=== PATIENT | female | born 1960 | race Caucasian/White ===

== ENCOUNTER → 2017-03-10 | Outpatient (CLI) | payer OTHER | END | disposition home or self-care (01) | LOC: C.LABMFLN 07:28 | PROVIDERS: ATTEND Physician Assistant | DX: R35.0 Frequency of micturition (principal) ==

== ENCOUNTER → 2018-01-22 | Outpatient (CLI) | payer OTHER ==
[2018-01-22 17:40] LABS: BASO % 0.9 %; BASO ABS # 0.06 K/uL (0-0.2); EOS % 2.7 %; EOS ABS # 0.18 K/uL (0-0.5); HEMATOCRIT 45.8 % (37-47); HEMOGLOBIN 16.1 g/dL (12.0-16.0); IG# 0.01 K/uL (0.00-0.02); LYMPH ABS # 1.72 K/uL (1.2-3.4); MEAN CELL VOLUME 88.6 fL (80-100); MEAN CORPUSCULAR HEMOGLOBIN 31.1 pg (25-34); MEAN CORPUSCULAR HGB CONC 35.2 g/dl (32-36); MEAN PLATELET VOLUME 10.3 fL (7.4-10.4); MONO % 9.8 %; MONO ABS # 0.65 K/uL (0.11-0.59); NEUT % 60.4 %; NEUT ABS # 3.99 K/uL (1.4-6.5); PLATELET COUNT 238 K/uL (130-400); RED CELL DISTRIBUTION WIDTH CV 13.5 % (11.5-14.5); RED CELL DISTRIBUTION WIDTH SD 43.6 fL (36.4-46.3); WHITE BLOOD COUNT 6.61 K/uL (4.8-10.8)
[2018-01-22 19:26] LABS: ALBUMIN 3.9 gm/dl (3.4-5.0); BLOOD UREA NITROGEN 19 mg/dl (7-18); CALCIUM 9.3 mg/dl (8.5-10.1); CARBON DIOXIDE 28 mmol/L (21-32); CREATININE 0.85 mg/dl (0.60-1.20); GLUCOSE 133 mg/dl (70-99); POTASSIUM 3.6 mmol/L (3.5-5.1); SODIUM 140 mmol/L (136-145)
[2018-01-22 19:49] LABS: PHOSPHORUS 3.4 mg/dl (2.5-4.9)
== END | disposition home or self-care (01) ==
LOC: C.LABMFLN 16:34
PROVIDERS: ATTEND Family Medicine
DX: R00.2 Palpitations (principal)

== ENCOUNTER → 2018-07-17 | Outpatient (CLI) | payer OTHER ==
[~2018-07-17] MED LIST: ACET-1256 PO; AMLO5TAB3 PO; CHOL100027 PO; CLB/200 PO; CLR10 PO; METO25TA3 PO; MULT-513 PO; OPTIRAY 320 IV PRN
--- NOTE | 2018-07-17 15:58 | DIAGNOSTIC IMAGING REPORT ---
ABD/PELVIS COMBO CLINICAL HISTORY: 57 years-old Female presenting with R31.0 Gross hematuriaRUST#[id number]. TECHNIQUE: Multidetector CT of the abdomen and pelvis was performed before and after the administration of intravenous contrast. IV contrast: 93 mL of Optiray 320. A dose lowering technique was used consistent with the principles of ALARA (as low as reasonably achievable). COMPARISON: 05/18/2018 performed at an outside hospital. CT DOSE (mGy.cm): The estimated cumulative dose is 2087.34 mGy.cm. FINDINGS: Test Center Manager topogram: Unremarkable. Lung bases: Lungs and pleural spaces clear. Normal heart size. No pericardial or pleural effusion. Liver: Normal morphology. Density consistent with hepatic steatosis. No focal lesion. Patent hepatic vasculature. Biliary: No intrahepatic or extrahepatic biliary ductal dilatation. Gallbladder decompressed. Pancreas: Normal. Spleen: Normal. Adrenal glands: Normal. Kidneys and ureters: Well-defined hypodensity in the right kidney consistent with simple cyst. No solid renal or urothelial mass. No nephrolithiasis. No hydronephrosis. Parapelvic cysts noted at the lower pole the left kidney. Ureters not dilated. No urothelial thickening. The distal left ureter is incompletely opacified with contrast limiting evaluation of this region. Bladder: Allowing for incomplete distention, the bladder is grossly normal appearing. Pelvic organs: Uterus surgically absent. Normal ovaries. Bowel: Normal appendix. No bowel obstruction. Peritoneal cavity: No free fluid or intraperitoneal gas. Lymph nodes: No enlarged lymph nodes in the abdomen or pelvis. Vasculature: Aorta and IVC patent and normal in caliber. Abdominal wall: Normal. Musculoskeletal: Degenerative changes of the spine. IMPRESSION: 1. No solid renal or urothelial neoplasm. No hydronephrosis. No nephrolithiasis. 2. Grossly normal-appearing bladder. This may not exclude the necessity of cystoscopy. 3. Hepatic steatosis. Electronically signed by: Derek Son M.D. 07/17/2018 3:57 PM Dictated Date/Time: 07/17/2018 3:49 PM
== END | disposition home or self-care (01) ==
LOC: C.CTS 15:25
PROVIDERS: ATTEND Urology
DX: R31.0 Gross hematuria (principal); K76.0 Fatty (change of) liver, not elsewhere classified

== ENCOUNTER 2023-11-27 06:08 | Inpatient (IN) ==
--- NOTE | 2023-11-10 10:42 | PAT Medication Instructions ---
Medication Instructions Date of Service November 10, 2023 Home Medications celecoxib 200 mg capsule (Celebrex) 200 mg PO BID PRN acetaminophen 500 mg tablet 1,000 mg PO Q6H PRN amlodipine 2.5 mg tablet 2.5 mg PO QAM calcium carbonate 600 mg-vitamin D3 5 mcg (200 unit) tablet 1 tab PO QAM cholecalciferol (vitamin D3) 25 mcg (1,000 unit) capsule (Vitamin D3) 1,000 unit PO QAM ibuprofen 200 mg tablet 400 mg PO QAM PRN losartan 25 mg tablet 25 mg PO QAM metoprolol succinate 25 mg tablet,extended release 24 hr 25 mg PO HS multivitamin 1 tab PO QAM potassium gluconate 550 mg (90 mg) tablet 550 mg PO QAM ASK your surgeon for instructions celecoxib 200 mg capsule (Celebrex) 200 mg PO BID PRN ibuprofen 200 mg tablet 400 mg PO QAM PRN DO NOT take the morning of surgery calcium carbonate 600 mg-vitamin D3 5 mcg (200 unit) tablet 1 tab PO QAM cholecalciferol (vitamin D3) 25 mcg (1,000 unit) capsule (Vitamin D3) 1,000 unit PO QAM losartan 25 mg tablet 25 mg PO QAM multivitamin 1 tab PO QAM potassium gluconate 550 mg (90 mg) tablet 550 mg PO QAM Take morning of surgery With a small sip of water, OTHERWISE NOTHING TO EAT OR DRINK AFTER MIDNIGHT: acetaminophen 500 mg tablet 1,000 mg PO Q6H PRN(if needed) amlodipine 2.5 mg tablet 2.5 mg PO QAM Take evening before surgery acetaminophen 500 mg tablet 1,000 mg PO Q6H PRN(if needed) metoprolol succinate 25 mg tablet,extended release 24 hr 25 mg PO HS Other Notes If you have any questions please call us at [phone] or [phone] or [phone] or [phone]
--- NOTE | 2023-11-13 11:26 | Anesthesiology Consultation ---
Date of Service November 13, 2023 Assessment & Plan (1) Encounter for pre-operative examination: Chart Review Chart Review: Acceptable Risk for Surgery (pending PCP clearance ) and Patient seen in Pre Admission Testing - Awaiting PCP clearance 11/14/23 ([place]) - Check BSG AM DOS Per PAT appt on 11/13/23, no recent illness/disease exposures, illness related symptoms, or recent illness/disease positive tests. Will leave to surgeon's discretion if preop Covid testing needed Teaching & Discussion Pre-Anesthesia Teaching/Discussion Notes: Instructed NPO after midnight before surgery,except medications with 15 cc of water. Medication instructions provided according to the PAT guidelines. History Surgery Operation Date: 11/27/23 07:45 Proposed Procedures p L3-L5 Decompression and Fusion, Spinal Cord Monitoring - Jeremy Hansen DO Height/Weight Height: 5 ft 3 in Weight: 108.6 kg Allergies Allergy/AdvReac Type Severity Reaction Status Date / Time Penicillins Allergy Severe HIVES Verified 11/06/23 11:33 prednisone Allergy Severe HEART Verified 11/06/23 11:33 PALPITATES & RACES, WEAK nickel Allergy Unknown skin Verified 11/06/23 11:34 irritation MELVIN Inhibitors AdvReac Severe MUSCLE Verified 11/06/23 11:33 WEAKNESS hydrochlorothiazide AdvReac Severe MUSCLE Verified 11/06/23 11:33 CRAMPING adhesive tape AdvReac Unknown skin Verified 11/06/23 11:35 irritation NSAIDS (Non-Steroidal AdvReac Unknown increased Verified 11/06/23 12:49 Anti-Inflamma bleeding Medications Home Medications Medication Instructions Recorded Confirmed Last Taken celecoxib 200 mg capsule (Celebrex) 200 mg PO BID PRN Pain 09/11/22 11/06/23 Unknown acetaminophen 500 mg tablet 1,000 mg PO Q6H PRN Pain 11/06/23 11/06/23 Unknown amlodipine 2.5 mg tablet 2.5 mg PO QAM 11/06/23 11/06/23 Unknown calcium carbonate 600 mg-vitamin 1 tab PO QAM 11/06/23 11/06/23 Unknown D3 5 mcg (200 unit) tablet cholecalciferol (vitamin D3) 25 1,000 unit PO QAM 11/06/23 11/06/23 Unknown mcg (1,000 unit) capsule (Vitamin D3) ibuprofen 200 mg tablet 400 mg PO QAM PRN Pain 11/06/23 11/06/23 Unknown losartan 25 mg tablet 25 mg PO QAM 11/06/23 11/06/23 Unknown metoprolol succinate 25 mg 25 mg PO HS 11/06/23 11/06/23 Unknown tablet,extended release 24 hr multivitamin 1 tab PO QAM 11/06/23 11/06/23 Unknown potassium gluconate 550 mg (90 mg) 550 mg PO QAM 11/06/23 11/06/23 Unknown tablet Past Medical History Medical History Morbid obesity Obstructive sleep apnea mild per 2020 sleep study; no CPAP History of postoperative nausea and vomiting Vitamin B12 deficiency (dietary) anemia takes oral supplement on occasion Hypokalemia hx of; takes oral supplement on occasion Controlled type 2 diabetes mellitus without complication diet controlled glucose controlled per patient Cervicalgia Chronic low back pain Palpitations pt states rare since starting on BB Allergic rhinitis EKG, abnormal Chronic abnormal EKG (cannot rule out anterior infarct)- has had subsequent ECHO without issues- follows with PCP Hyperlipidemia no meds at present Migraine headache HTN (hypertension) Exercise / Class Metabolic Activity III < 4 Walking/Shop/Light housework (one flight of stairs - no chest pain, mild SOB) Past Family History Family History Mother Hypertension Uterine cancer Father Diabetes Hypertension Leukemia Non-Hodgkin lymphoma Peripheral neuropathy Brother Diabetes Sister Diabetes Hypertension Osteoporosis Past Surgical History Surgical History Status post hysteroscopic ablation of endometrium S/P carpal tunnel release b/l S/P tonsillectomy H/O arthroscopy of knee L meniscectomy S/P hysterectomy H/O colonoscopy 04/12/2022 H/O section x 2 Past Anesthesia History No Hx of Anesthesia Complications (with exception to PONV ) and No Family Hx of Anesthesia Complications (with exception to mother- PONV ) History of PONV History of PONV (improved with pre and domenica treatment with anti nausea medication ) and Hx of Motion Sickness Social History Smoking Status: Former smoker Smoking cigarettes per day: <5 cigs/day Do You Dip or Chew Tobacco: No Smoking End Date: Hx Alcohol Use: No Hx Substance Use: No Review of Systems Patient denies chest pain, shortness of breath at rest, reflux, cough, wheezing, palpitations. No hx of seizures, stroke. No hx of blood clots or blood transfusions Physical Exam Vital Signs VITALS BP 135/82 P 88 TEMP 97.9 SP02 98% RESP 16 Constitutional no acute distress ENMT Mouth: no TMJ clicking Thyromental Distance: > or= 3.5 Finger Breadths (3.5) Mallampati Class: III [place] T[place] to side tooth Neck neck extension not limited Respiratory normal respiratory effort; no respiratory distress Auscultation: lungs clear to auscultation bilaterally; no wheezes Cardiovascular Rate/Rhythm: regular rhythm; + abnormal rate Heart Sounds: no murmur Vessels: no carotid bruit Musculoskeletal Spine: no pain with cervical ROM Extremities: extremities normal to inspection Psychiatric Orientation: alert Lab Results Anesthesia Preop Results Results Anesthesia Widget: WBC 6.14 K/ul (4.8-10.8) 11/13/23 Hgb 14.0 g/dl (12.0-16.0) 11/13/23 Hct 40.0 % (37.0-47.0) 11/13/23 Plt 223 K/uL (130-400) 11/13/23 Na 138 mmol/L (136-145) 11/13/23 K 3.9 mmol/L (3.5-5.1) 11/13/23 Cl 106 mmol/L (98-107) 11/13/23 CO2 26 mmol/L (21-32) 11/13/23 BUN 20 mg/dl (6-23) 11/13/23 Creat 0.74 mg/dl (0.6-1.2) 11/13/23 Glucose Level 172 mg/dl (70-99(Fasting)) H 11/13/23 PT 10.7 Seconds (9.0-12.0) 11/13/23 PTT 27 Seconds (21-31) 11/13/23 INR 1.0 (0.9-1.1) 11/13/23 HA1c 6.4 % (4.5-5.6) H 11/13/23 Urine Color Yellow 11/13/23 Urine Appearance Clear (Clear) 11/13/23 Urine pH 5.5 (4.5-7.5) 11/13/23 Urine Specific [place] 1.020 (1.000-1.030) 11/13/23 Urine Protein Negative (Negative) 11/13/23 Urine Glucose (UA) 2+ (Negative) H 11/13/23 Urine Ketones Negative (Negative) 11/13/23 Urine Blood Negative (Negative) 11/13/23 Urine Nitrite Negative (Negative) 11/13/23 Urine Bilirubin Negative (Negative) 11/13/23 Urine Urobilinogen Negative (Negative) 11/13/23 Urine Leukocyte Esterase Negative (Negative) 11/13/23 Blood Type A Positive 11/13/23 Antibody Screen NEGATIVE 11/13/23 Testing Electrocardiogram Date: 11/13/23 Findings: + NSR @ Poor R wave progression, consider anterior DC versus lead placement versus LVH (Poor R wave progression present since at least 2018 (continues to be similar in appearance by personal visual inspection)did have subsequent echo showing no acute issues; patient seen PCP 11/14/23 for clearance) Chest X-Ray Date: 11/13/23 Findings: + NAD FINDINGS: PA and lateral chest radiographs are obtained. No prior studies are available for comparison at the time of dictation. The cardiomediastinal silhouette is top normal for projection noting atherosclerotic calcification of the thoracic aorta. The lungs and pleural spaces are clear. There is no pneum othorax. The bony thorax appears intact. Echocardiogram Date: 01/12/21 EF: 65-70% LV Function: normal RWMA: + none Other Findings: + LVH (mild/concentric ) and + diastolic dysfunction (Grade I ) Valvular Disease: + MR (mild) Mild left atrial dilation No significant change from prior study on 02/12/18
[~2023-11-27 06:08] MED LIST changes: -ACET-1256 PO; +ACETAMINOPHEN 500 MG TAB PO SCH; -AMLO5TAB3 PO; -CHOL100027 PO; -CLB/200 PO; -CLR10 PO; +GABAPENTIN 600 MG DOSE PO SCH; +LR 15ML/HR IV SCH; +LR 60ML/HR IV SCH; -METO25TA3 PO; -MULT-513 PO; -OPTIRAY 320 IV PRN; +ceFAZolin 2000MG 2,000 MG/15 ML SYR IV SCH
[2023-11-27] MEDS ORDERED: ROCURONIUM BROMIDE 10 MG/ML 5 ML VIAL IV ONE (06:56)
[2023-11-27] MEDS ORDERED: MIDAZOLAM HCL 1 MG/ML 2ML VIAL ONE (07:01)
[2023-11-27] MEDS ORDERED: SCOPOLAMINE 1 MG TDSY TD ONE ×2 (07:01→07:03)
[2023-11-27] MEDS ORDERED: DEXAMETHASONE SOD INJ 4 MG/ML VIAL ONE (07:01)
[2023-11-27] MEDS ORDERED: SUGAMMADEX SODIUM 200 MG/2 ML VIAL IV ONE (07:01)
[2023-11-27] MEDS ORDERED: ONDANSETRON INJ 2 MG/ML 2 ML VIAL ONE (07:01)
[2023-11-27] MEDS ORDERED: PROPOFOL IV EMULSION 10 MG/ML 20 ML VIAL IV ONE (07:01)
[2023-11-27] MEDS ORDERED: fentaNYL citrate PF 100 MCG/2 ML VIAL ONE ×2 (07:01→10:18)
[2023-11-27] MEDS ORDERED: PROMETHAZINE HCL 6.25 MG in SODIUM CHLORIDE 0.9% 50 ML IV PRN (07:02)
[2023-11-27] MEDS ORDERED: ePHEDrine sulfate 50 MG/ML AMP IV PRN (07:02)
[2023-11-27] MEDS ORDERED: HYDROmorphone INJ 2 MG/ML SYR/VIAL IV PRN (07:02)
[2023-11-27] MEDS ORDERED: ONDANSETRON INJ 2 MG/ML 2 ML VIAL IV PRN ×2 (07:02→12:34)
[2023-11-27] MEDS ORDERED: ATROPINE SULFATE 0.1 MG/ML 10ML SYR IV PRN (07:02)
--- NOTE | 2023-11-27 07:48 | History & Physical Bridge Note ---
Date of Service November 27, 2023 History & Physical Bridge Note I have examined the patient, reviewed the History & Physical and in the interval since the performance of the History & Physical I have noted the following changes of clinical significance: no changes noted
--- NOTE | 2023-11-27 07:49 | History & Physical Report ---
Date of Service November 27, 2023 Assessment & Plan (1) Neurogenic claudication due to lumbar spinal stenosis: Plan: L3-5 decompression and fusion History of Present Illness Chief Complaint: Back and leg pain Primary Care Provider: Christophe Cano MD This is a 63-year-old female presents with chronic persistent back and leg pain after failing course of nonoperative care she is here for surgical invention. Allergies Allergy/AdvReac Type Severity Reaction Status Date / Time Penicillins Allergy Severe HIVES Verified 11/27/23 06:33 prednisone Allergy Severe HEART Verified 11/27/23 06:33 PALPITATES & RACES, WEAK nickel Allergy Unknown skin Verified 11/27/23 06:33 irritation MELVIN Inhibitors AdvReac Severe MUSCLE Verified 11/27/23 06:33 WEAKNESS hydrochlorothiazide AdvReac Severe MUSCLE Verified 11/27/23 06:33 CRAMPING adhesive tape AdvReac Unknown skin Verified 11/27/23 06:33 irritation NSAIDS (Non-Steroidal AdvReac Unknown increased Verified 11/27/23 06:33 Anti-Inflamma bleeding Home Medications Medication Instructions Recorded Confirmed Type celecoxib 200 mg capsule (Celebrex) 200 mg PO BID PRN Pain 09/11/22 11/27/23 History acetaminophen 500 mg tablet 1,000 mg PO Q6H PRN Pain 11/06/23 11/27/23 History amlodipine 2.5 mg tablet 2.5 mg PO QAM 11/06/23 11/27/23 History calcium carbonate 600 mg-vitamin 1 tab PO QAM 11/06/23 11/27/23 History D3 5 mcg (200 unit) tablet cholecalciferol (vitamin D3) 25 1,000 unit PO QAM 11/06/23 11/27/23 History mcg (1,000 unit) capsule (Vitamin D3) ibuprofen 200 mg tablet 400 mg PO QAM PRN Pain 11/06/23 11/27/23 History losartan 25 mg tablet 25 mg PO QAM 11/06/23 11/27/23 History metoprolol succinate 25 mg 25 mg PO HS 11/06/23 11/27/23 History tablet,extended release 24 hr multivitamin 1 tab PO QAM 11/06/23 11/27/23 History potassium gluconate 550 mg (90 mg) 550 mg PO QAM 11/06/23 11/27/23 History tablet Past Med/Surg History Medical History Morbid obesity Obstructive sleep apnea mild per 2020 sleep study; no CPAP History of postoperative nausea and vomiting Vitamin B12 deficiency (dietary) anemia takes oral supplement on occasion Hypokalemia hx of; takes oral supplement on occasion Controlled type 2 diabetes mellitus without complication diet controlled glucose controlled per patient Cervicalgia Chronic low back pain Palpitations pt states rare since starting on BB Allergic rhinitis EKG, abnormal Chronic abnormal EKG (cannot rule out anterior infarct)- has had subsequent ECHO without issues- follows with PCP Hyperlipidemia no meds at present Migraine headache HTN (hypertension) Surgical History Status post hysteroscopic ablation of endometrium S/P carpal tunnel release b/l S/P tonsillectomy H/O arthroscopy of knee L meniscectomy S/P hysterectomy H/O colonoscopy 04/12/2022 H/O section x 2 Family History Mother Hypertension Uterine cancer Father Diabetes Hypertension Leukemia Non-Hodgkin lymphoma Peripheral neuropathy Brother Diabetes Sister Diabetes Hypertension Osteoporosis Social History Smoking Status: Former smoker Tobacco Type: Cigarettes Cigarettes Per Day: <5 cigs/day; Smoking End Date: ; Second Hand Exposure: No; Do You Dip or Chew Tobacco: No; Tobacco Cessation Education Requested by Patient: No Hx Alcohol Use: No Hx Substance Use: No Preferred Language: Finnish Communication Ability: Effective Visual Impairment: No Limitations Hearing Ability: Normal Crown 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 Required: No Beliefs That Will Affect Care: None marital status: Current Living Situation: Spouse current occupational status: employed Other Information That Helps Us Care for You: No Feels Safe at Home: Yes Safety Concerns: Feels Safe At This Time Childhood Exposure to Second-Hand Smoke: Yes Diet: regular caffeine: No Dental Care, Regularly: Yes Seatbelt Use: always Sunscreen Use: Yes Assistive Devices: Glasses Physical Exam Physical Exam: Patient is alert and oriented Heart regular rate and rhythm Lungs clear Results & Data Results & Data Vital Signs (Past 12 Hours) Vital Signs Temp Pulse Resp BP Pulse Ox O2 Del Method 11/27/23 06:28 36.7 C 96 H 18 140/95 95 Room Air
[2023-11-27] MEDS ORDERED: BUPIVACAINE/EPINEPHRINE 0.25% 1:200,000 30 ML VIAL ONE (07:52)
[2023-11-27] MEDS ORDERED: ceFAZolin 330 MG/ML 1 GM VIAL ONE (07:52)
[2023-11-27] MEDS ORDERED: GLYCOPYRROLATE 0.2 MG/ML VIAL ONE ×2 (08:30→08:36)
[2023-11-27] MEDS ORDERED: PHENYLEPHRINE 100MCG/ML 10ML SYR IV ONE (08:30)
[2023-11-27] MEDS ORDERED: ePHEDrine sulfate 50 MG/5 ML SYR ONE (08:36)
[2023-11-27] MEDS ORDERED: FLOSEAL HEMOSTATIC MATRIX 10ML TOP ONE (10:25)
--- NOTE | 2023-11-27 10:36 | Operative Report ---
Post Operative Report Pre & Post Diagnosis Operation Date: 11/27/23 07:45 Pre-Op Diagnosis: Neurogenic claudication due to lumbar spinal stenosis Spondylolisthesis L3-L4 Morbid obesity Post-Op Diagnosis: Same I identified the patient and participated in the time-out.: Yes Procedure Operation Date: 11/27/23 07:45 Actual Procedures #1 lumbar decompression bilaterally facetectomies and foraminotomies L2-3, L3-L4 and L4-5. #2 posterior spinal fusion L3-L4 L4-5. #3 placement posterior instrumentation L3-L5. #4 interbody fusion L3-L4 L4-L5. #5 position of Spira limb by 26 mm at L3-L4 and 13 x 26 mm at L4-L5. #6 placement locally harvested morselized autograft in the posterior gutters. #7 placement of Morpheus bone graft in the interbody space and infuse collagen sponge placed combined with bone graft in the posterior lateral gutters. Surgeon Jeremy Hansen, DO Acid Splicer Mykel Cisneros Estimated Blood Loss 700 Findings See Below The patient is 5 foot 3 weighing over 107 kg with BMI in excess of 41. Patient's body habitus did contribute to significant technical difficulty requiring her deepest retractors and longer instruments in order from perform her procedure. This at least 50% increased operative time. Specimens 20 minutes Indications This is a 63-year-old female presents above-mentioned diagnosis after failing course of nonoperative care is here for surgical invention Description of Procedure Patient was met with identified informed consent obtained. Patient was then taken to the operative suite underwent patient placed in a prone position on the Rah table on top of the Aleks frame. All bony prominences well-padded eyes inspected to ensure no external pressure placed upon them. This point the lumbar spine was prepped and draped in normal sterile fashion. Sharp dissection with the assistance of Bovie cautery performed down to and exposing the lamina transverse processes of L3 L4-5 bilaterally. From a caudal cephalad fashion complete laminectomy of L4 L3 and partial laminectomy of L2 was performed including bilateral medial facetectomies and foraminotomies addressing severe spinal stenosis. Pedicle screws were then placed at L3 L4-5 bilaterally with assistance of fluoroscopy and appropriately sized michael placed. By way of a transforaminal approach on the right complete discectomy of L4-5 was performed endplates guided to subcortically bone and a 13 x 26 mm Spira cage with Morpheus tapped in position. Then proceeded to L4-L5 on the right and by way of a transforaminal portion right a complete discectomy of L4-5 was performed endplates guided to subcortically bone and a 11 x 26 mm Spira cage with I factor tapped in position. The rods were then compressed locked in final position bilaterally. The transverse processes of L3 L4-5 burred to subcortical bleeding bone infuse collagen sponge combined with Koros bone graft placed in posterior gutters. 15 round MICHAEL drain inserted. The incision was then closed with 1 Vicryl the fascia 2-0 Vicryl subcutaneously and 4 Monocryl for final closure. Steri-Strip sterile dressings placed. Patient awakened taken to PACU stable condition. Please note spinal cord monitoring visualized at the procedure no changes noted. Lastly Mykel Cisneros was present at the entire surgery involved in patient positioning complex portions of the surgery and final skin closure. I attest to the content of the Intraoperative Record and any orders documented therein. Any exceptions are noted below.
--- NOTE | 2023-11-27 10:46 | Fluoroscopy Report ---
INTRAOPERATIVE RADIOGRAPHS CLINICAL HISTORY: Lumbar spinal fusion. Fluoro time: 25 seconds Ka,r: 24.58 mGy FINDINGS: 2 spot fluoroscopic views of the lumbar spine are presented. The levels noted takes into ac count transitional anatomy. There has been discectomy at L4-L5 and L5-S1 with laminectomy and posteri or fusion at L4-S1. Interpedicular screws are in place. The orthopedic hardware appears intact. IMPRESSION: Intraoperative images from lumbar spinal fusion surgery as above. Electronically signed by: Christophe Purcell M.D. 11/27/2023 10:45 AM
[2023-11-27] MEDS: fentaNYL citrate PF 100 MCG/2 ML VIAL IV PRN ×2 (11:15→11:24)
[2023-11-27] MEDS ORDERED: PROMETHAZINE HCL INJ 25 MG/ML 1 ML VIAL ONE (11:25)
[2023-11-27] MEDS ORDERED: SODIUM CHLORIDE 0.9% 50 ML BAG ONE (11:25)
[2023-11-27] MEDS ORDERED: LORazepam 0.5 MG in SYRINGE 0.25 ML IV PRN (12:34)
[2023-11-27] MEDS ORDERED: ALUMINUM/MAGNESIUM SUSP 30 ML UDC PO PRN (12:34)
[2023-11-27] MEDS ORDERED: DO NOT ADMINISTER FLU VACCINE PRN (12:34)
[2023-11-27] MEDS ORDERED: MAGNESIUM HYDROXIDE SUSP 30 ML UDC PO PRN (12:34)
[2023-11-27] MEDS ORDERED: HYDROmorphone INJ 0.5 MG/0.5 ML SYR IV PRN (12:34)
[2023-11-27] MEDS ORDERED: ACETAMINOPHEN 500 MG TAB PO PRN (12:34)
[2023-11-27] MEDS ORDERED: traMADol HCL 50 MG TABLET PO PRN (12:34)
[2023-11-27] MEDS ORDERED: LORazepam 0.5 MG TAB PO PRN (12:34)
[2023-11-27] MEDS ORDERED: DO NOT ADMINISTER PNEUMOCOCCAL VACCINE PRN (12:34)
[2023-11-27] MEDS ORDERED: METOCLOPRAMIDE HCL INJ 5 MG/ML 2 ML VIAL IV PRN (12:34)
[2023-11-27] MEDS ORDERED: ONDANSETRON 4 MG OD TAB PO PRN (12:34)
[2023-11-27] MEDS ORDERED: FAMOTIDINE 20 MG TAB PO PRN (12:34)
[2023-11-27] MEDS ORDERED: hydrOXYzine HCl 25 MG TAB PO PRN (12:34)
[2023-11-27] MEDS ORDERED: diphenhydrAMINE Capsule 25 MG CAP PO PRN (12:34)
[2023-11-27] MEDS ORDERED: SOD PHOSPHATE/SOD BIPHOSPHATE ENEMA 132 ML BTL PR PRN (12:34)
[2023-11-27] MEDS ORDERED: PROMETHAZINE HCL 12.5 MG in SODIUM CHLORIDE 0.9% 50 ML IV PRN (12:34)
[2023-11-27] MEDS ORDERED: NALOXONE HCL 0.4 MG/1 ML VIAL/CARP IV PRN (12:34)
[2023-11-27] MEDS ORDERED: bisacodyL 10 MG SUPP PR PRN (12:34)
[2023-11-27] MEDS ORDERED: ACETAMINOPHEN 1,000 MG/100 ML VIAL IV PRN (12:34)
[2023-11-27] MEDS: LACTATED RINGER'S 1,000 ML IV SCH ×2 (12:47→17:26)
--- NOTE | 2023-11-27 12:49 | Anesthesiology Progress Note ---
Date of Service November 27, 2023 Anesthesia Post Procedure Vital Signs Vital Signs: Temp Pulse Pulse Pulse Resp BP BP 11/27/23 12:34 36.7 C 96 H 18 112/72 11/27/23 12:10 88 20 149/75 H 11/27/23 12:00 97 H 20 141/80 H 11/27/23 11:50 94 H 16 147/83 H 11/27/23 11:40 95 H 12 149/86 H 11/27/23 11:30 99 H 20 164/94 H 11/27/23 11:20 91 H 18 159/84 H 11/27/23 11:10 118 H 20 190/109 H 11/27/23 11:00 93 H 16 146/80 H 11/27/23 10:58 36.0 C L 111 H 14 166/88 H 11/27/23 06:28 36.7 C 96 H 18 140/95 Pulse Ox O2 Del Method O2 Flow Rate 11/27/23 12:34 95 Room Air 11/27/23 12:10 95 Nasal Cannula 2 11/27/23 12:00 95 Nasal Cannula 2 11/27/23 11:50 96 Nasal Cannula 2 11/27/23 11:40 94 Nasal Cannula 2 11/27/23 11:30 94 Nasal Cannula 2 11/27/23 11:20 97 Nasal Cannula 4 11/27/23 11:10 94 Nasal Cannula 4 11/27/23 11:00 94 Oxymask 6 11/27/23 10:58 94 Oxymask 6 11/27/23 06:28 95 Room Air Pain Intensity Back: Pain Intensity: 3 Transfer of Care Handoff Completed per policy Notes Mental Status: alert / awake / arousable Patient Amnestic to Procedure: Yes Nausea / Vomiting: adequately controlled Pain: adequately controlled Airway Patency, RR, SpO2: stable & adequate BP & HR: stable & adequate Hydration State: stable & adequate Anesthetic Complications: no major complications apparent
[2023-11-27] MEDS: ceFAZolin 2000MG 2,000 MG/15 ML SYR IV SCH (16:45)
[2023-11-27] MEDS: CHECK SCOPOLAMINE PATCH PLACEMENT SCH (16:46)
[2023-11-27] MEDS: HYDROmorphone INJ 1 MG/ML SYRINGE IV PRN ×2 (17:21→22:03)
[2023-11-27] MEDS: DOCUSATE SODIUM/SENNA 50/8.6MG TAB PO SCH (19:42)
[2023-11-27] MEDS: METOPROLOL SUCC 25MG EXT REL TAB PO SCH (19:43)
[2023-11-28] MEDS: ceFAZolin 2000MG 2,000 MG/15 ML SYR IV SCH (00:20)
[2023-11-28] MEDS: CHECK SCOPOLAMINE PATCH PLACEMENT SCH ×4 (00:20→23:30)
[2023-11-28] MEDS: LACTATED RINGER'S 1,000 ML IV SCH ×2 (00:21→05:21)
[2023-11-28] MEDS: oxyCODONE HCL IR 5 MG TAB (IMMEDIATE RELEASE) PO PRN ×4 (02:16→23:53)
[2023-11-28] MEDS: POLYETHYLENE (MIRALAX) 17 GM PACK PO SCH ×4 (05:21→23:30)
[2023-11-28] MEDS: CHOLECALCIFEROL 1,000 UNITS 25 MCG TAB PO SCH (08:02)
[2023-11-28] MEDS: amLODIPine BESYLATE 5 MG TAB PO SCH (08:02)
[2023-11-28] MEDS: MULTIVITAMIN TAB PO SCH (08:02)
[2023-11-28] MEDS: dexAMETHasone 6 MG in SYRINGE 0 ML IV SCH (08:02)
[2023-11-28] MEDS: CALCIUM 600MG + VIT D 400 IU TAB PO SCH (08:02)
--- NOTE | 2023-11-28 08:05 | Hospitalist Consultation ---
Date of Consultation November 28, 2023 Assessment & Plan (1) Neurogenic claudication due to lumbar spinal stenosis: s/p #1 lumbar decompression bilaterally facetectomies and foraminotomies L2-3, L3-L4 and L4-5. #2 posterior spinal fusion L3-L4 L4-5. #3 placement posterior instrumentation L3-L5. #4 interbody fusion L3-L4 L4-L5. #5 position of Spira limb by 26 mm at L3-L4 and 13 x 26 mm at L4-L5. #6 placement locally harvested morselized autograft in the posterior gutters. #7 placement of Morpheus bone graft in the interbody space and infuse collagen sponge placed combined with bone graft in the posterior lateral gutters. EBL 700cc Pain control, bowel regimen, PT/OT per primary service DVT Proph: SCDs, aquiles hose WBC elevation suspected from steroids/surgery Hgb 14 --> 10.1, acute blood loss anemia from surgery/some dilutional from IVF --Checking orthostatics for lightheadedness, suspect acute blood loss anemia from surgery --EBL 700cc, MICHAEL output reported 355cc thus far -- Hold further losartan as below, metoprolol w/ hold parameters Discussed to alert of any worsened lightheaded/dizziness. Does have + murmur on exam (prior echo 2020 w/ mild MR noted, no change from 2018) (2) HTN (hypertension): home meds w/ amlodipine 2.5mg, metoprolol 25mg HS, losartan 25mg daily -Did have some lightheadedness reported, BP 121/70 but did have lows last evening -was already given AM losartan (noting did have some low BPs last evening) -- placing further on hold for now. She didn't get PM metoprolol due to low BPs of note RN to check orthostatics, IVF bolus if needed. HOLDING further losartan for now, metoprolol w/ hold parameters Monitor BP (3) Hyperlipidemia: not on statin, f/u PCP (4) Controlled type 2 diabetes mellitus without complication: a1c 6.4 -- f/u PCP recommended Not on any medications at baseline Added BSG AC/HS, sliding scale insulin while inpatient Monitor BSGs on steroids (5) Obstructive sleep apnea: not tolerant to CPAP, does have diastolic dysfunction on 2019 echo. f/u PCP for further discussions recommended Also w/ seasonal allergies -> flonase added as takes at home (6) Vitamin B12 deficiency (dietary) anemia: 311 this summer, continue OTC supplementations at [place] Plan Thank you for allowing hospitalist service participate in the care of Ms Epperson. Hospitalist service will follow along. Please call with any questions/concerns. Supervising Physician Co-Signing Physician Notes The patient was not seen by me. The chart was reviewed. Case discussed with ADAM Lagos. Agree with assessment and plan History of Present Illness Reason for Consultation: medical management Requesting Physician: Dr Hansen Attending Physician: Jeremy Hansen DO History of Present Illness 63yo female with PMHx significant for HTN, HLD, CAM (CPAP intolerant), DM II (not treated), B12 deficiency presented for lumbar decompression and fusion with Dr Hansen on 11/27. EBL 700. Eval this morning, feeling alright. Some hip/low back pain but legs controlled. Tejada still in place, clear yellow urine. To be removed after lunch but she wants to take a walk first. Notes some lightheadedness at times, discussed checking orthostatics/IVF bolus if needed but holding further losartan as was given early this morning. She notes her BP was low last evening and they held her metoprolol. No palpitations/CP reported. Discussed iron replacement/iron studies for AM but would want to ensure moving bowels. No gas but belly grumbling at present. Does have some sinus congestion, seasonal allergies/flonase at home. Will order while inpatient. Questions/concerns addressed at this time. Allergies Allergy/AdvReac Type Severity Reaction Status Date / Time Penicillins Allergy Severe HIVES Verified 11/27/23 06:33 prednisone Allergy Severe HEART Verified 11/27/23 06:33 PALPITATES & RACES, WEAK nickel Allergy Unknown skin Verified 11/27/23 06:33 irritation MELVIN Inhibitors AdvReac Severe MUSCLE Verified 11/27/23 06:33 WEAKNESS hydrochlorothiazide AdvReac Severe MUSCLE Verified 11/27/23 06:33 CRAMPING adhesive tape AdvReac Unknown skin Verified 11/27/23 06:33 irritation NSAIDS (Non-Steroidal AdvReac Unknown increased Verified 11/27/23 06:33 Anti-Inflamma bleeding Home Medications Medication Instructions Recorded Confirmed Type celecoxib 200 mg capsule (Celebrex) 200 mg PO BID PRN Pain 09/11/22 11/27/23 History acetaminophen 500 mg tablet 1,000 mg PO Q6H PRN Pain 11/06/23 11/27/23 History amlodipine 2.5 mg tablet 2.5 mg PO QAM 11/06/23 11/27/23 History calcium carbonate 600 mg-vitamin 1 tab PO QAM 11/06/23 11/27/23 History D3 5 mcg (200 unit) tablet cholecalciferol (vitamin D3) 25 1,000 unit PO QAM 11/06/23 11/27/23 History mcg (1,000 unit) capsule (Vitamin D3) ibuprofen 200 mg tablet 400 mg PO QAM PRN Pain 11/06/23 11/27/23 History losartan 25 mg tablet 25 mg PO QAM 11/06/23 11/27/23 History metoprolol succinate 25 mg 25 mg PO HS 11/06/23 11/27/23 History tablet,extended release 24 hr multivitamin 1 tab PO QAM 11/06/23 11/27/23 History potassium gluconate 550 mg (90 mg) 550 mg PO QAM 11/06/23 11/27/23 History tablet oxycodone 5 mg tablet 5 mg PO Q6H PRN pain #30 tabs 11/27/23 Rx tramadol 50 mg tablet 50 mg PO Q6H PRN pain, moderate 11/27/23 Rx #30 tabs Patient History Medical History Morbid obesity Obstructive sleep apnea mild per 2020 sleep study; no CPAP History of postoperative nausea and vomiting Vitamin B12 deficiency (dietary) anemia takes oral supplement on occasion Hypokalemia hx of; takes oral supplement on occasion Controlled type 2 diabetes mellitus without complication diet controlled glucose controlled per patient Cervicalgia Chronic low back pain Palpitations pt states rare since starting on BB Allergic rhinitis EKG, abnormal Chronic abnormal EKG (cannot rule out anterior infarct)- has had subsequent ECHO without issues- follows with PCP Hyperlipidemia no meds at present Migraine headache HTN (hypertension) Surgical History Status post hysteroscopic ablation of endometrium S/P carpal tunnel release b/l S/P tonsillectomy H/O arthroscopy of knee L meniscectomy S/P hysterectomy H/O colonoscopy 04/12/2022 H/O section x 2 Family History Mother Hypertension Uterine cancer Father Diabetes Hypertension Leukemia Non-Hodgkin lymphoma Peripheral neuropathy Brother Diabetes Sister Diabetes Hypertension Osteoporosis Social History Smoking Status: Former smoker Tobacco Type: Cigarettes Cigarettes Per Day: <5 cigs/day; Smoking End Date: ; Second Hand Exposure: No; Do You Dip or Chew Tobacco: No; Tobacco Cessation Education Requested by Patient: No Hx Alcohol Use: No Hx Substance Use: No Preferred Language: Hungarian Communication Ability: Effective Visual Impairment: No Limitations Hearing Ability: Normal Filler Operator Required: No Beliefs That Will Affect Care: None marital status: Current Living Situation: Spouse current occupational status: employed Other Information That Helps Us Care for You: No Feels Safe at Home: Yes Safety Concerns: Feels Safe At This Time Childhood Exposure to Second-Hand Smoke: Yes Diet: regular caffeine: No Dental Care, Regularly: Yes Seatbelt Use: always Sunscreen Use: Yes Assistive Devices: Glasses Physical Exam 2 Physical Exam: General: WD/WN obese female sitting up in bed, NAD, on computer HEENT: head atraumatic, normocephalic, thick neck, trachea midline Resp: even/unlabored,slightly diminished in the bases, no w/c/r, on room air CV: regular, slightly tachy to low 100s, +systolic murmur, no pitting edema/calf tenderness GI: +BS, soft/NT : tejada w/ clear yellow urine MSK/Neuro: dressing to lumbar spine c/d/i, MICHAEL w/ bloody drainage, NVI, pulses palpable, dorsiflexion/plantar flexion intact Psych: AOx3, cooperative with exam Results & Data Results & Data Vital Signs (Past 12 Hours) Vital Signs Temp Pulse Resp BP Pulse Ox O2 Del Method 11/28/23 07:26 36.9 C 105 H 16 121/70 95 Room Air 11/28/23 04:08 104/63 11/28/23 02:57 36.6 C 93 H 18 91/52 L 94 Room Air 11/28/23 00:02 36.6 C 93 H 18 92/50 L 93 Room Air Laboratory Results 11/28/23 07:33 11/28/23 07:33 PG Care Time/CCT Total # of Minutes Spent Total Time Spent with Patient: Total time spent is greater than 50% in coordination of care (as documented) at patient's floor/unit and/or counseling patient: Coding Level of Care Code 80471 IN/OBS CONSULT LVL 3,45M Diagnoses Neurogenic claudication due to lumbar spinal stenosis M48.062 HTN (hypertension) I10 Hyperlipidemia E78.5 Controlled type 2 diabetes mellitus without complication E11.9 Obstructive sleep apnea G47.33 Vitamin B12 deficiency (dietary) anemia D51.8
[2023-11-28 08:25] LABS: Basophils # (auto) 0.03 K/uL (0.00-0.20); Basophils % (auto) 0.2 %; Eosinophils # (auto) 0.01 K/uL (0.00-0.50); Eosinophils % (auto) 0.1 %; Hematocrit (blood only) 29.6 % (37.0-47.0); Hemoglobin 10.1 g/dl (12.0-16.0); Immature Granulocytes # (auto) 0.07 K/uL (0.01-0.20); Immature Granulocytes % (auto) 0.5 %; Lymphocytes # (auto) 1.06 K/uL (1.20-3.40); Lymphocytes % (auto) 7.9 %; Mean Corpuscular Hemoglobin 30.7 pg (25.0-34.0); Mean Corpuscular Hgb Conc 34.1 g/dL (32.0-36.0); Mean Platelet Volume 10.4 fL (9.4-12.4); Monocytes # (auto) 1.25 K/uL (0.11-0.59); Monocytes % (auto) 9.3 %; Platelet Count 180 K/uL (130-400); RDW Standard Deviation 42.8 fL (36.4-46.3); Red Blood Count 3.29 M/uL (4.20-5.40); White Blood Count 13.42 K/ul (4.8-10.8)
[2023-11-28 08:39] LABS: BUN Creatinine Ratio 24.7 (10-20); Calcium 8.8 mg/dl (8.6-10.3); Creatinine Clr Calc Pharmacy 78.7 ml/min; Est GFR (African American) 81.1 ml/min; Magnesium 1.9 mg/dl (1.7-2.4)
[2023-11-28] MEDS ORDERED: LOSARTAN POTASSIUM 25 MG TAB PO SCH (09:00)
[2023-11-28] MEDS ORDERED: GLUCOSE 10 TAB/TUBE PO PRN (09:12)
[2023-11-28] MEDS ORDERED: DEXTROSE 50% 50 ML SYRINGE IV PRN (09:12)
[2023-11-28] MEDS ORDERED: GLUCAGON FOR INJ 1 MG VIAL SQ PRN (09:12)
[2023-11-28] MEDS ORDERED: GLUCOSE 40% GEL 15 GM TUBE PO PRN (09:12)
[2023-11-28] MEDS ORDERED: CARBOHYDRATES FOR HYPOGLYCEMIA PO PRN (09:12)
[2023-11-28] MEDS: INSULIN ASPART PER UNIT CHARGE SC SCH ×3 (12:27→20:47)
[2023-11-28] MEDS: FLUTICASONE PROPIONATE NA SPR 16 GM BTL SCH (12:27)
--- NOTE | 2023-11-28 15:09 | Orthopedic Progress Note ---
Date of Service November 28, 2023 Assessment & Plan (1) Neurogenic claudication due to lumbar spinal stenosis: Plan: At this time we will continue physical therapy monitor MICHAEL operatively discharge home in next few days. Admission and Anticipated Discharge Date Admission Date: November 27, 2023 Subjective Back pain controlled leg pain markedly improved Physical Exam Physical Exam: Patient is good strength testing. Appears comfortable. Results & Data Vital Signs (Past 12 Hours) Vital Signs Temp Pulse Resp BP Pulse Ox O2 Del Method 11/28/23 14:39 36.9 C 104 H 16 132/67 96 Room Air 11/28/23 07:26 36.9 C 105 H 16 121/70 95 Room Air 11/28/23 04:08 104/63
[2023-11-28] MEDS: DOCUSATE SODIUM/SENNA 50/8.6MG TAB PO SCH (19:42)
[2023-11-28] MEDS: METOPROLOL SUCC 25MG EXT REL TAB PO SCH (19:43)
[2023-11-29] MEDS: oxyCODONE HCL IR 5 MG TAB (IMMEDIATE RELEASE) PO PRN ×2 (05:25→20:10)
[2023-11-29] MEDS: POLYETHYLENE (MIRALAX) 17 GM PACK PO SCH ×4 (05:26→23:02)
[2023-11-29 08:09] LABS: Hematocrit (blood only) 27.4 % (37.0-47.0); Hemoglobin 9.3 g/dl (12.0-16.0); Mean Corpuscular Hemoglobin 30.5 pg (25.0-34.0); Mean Corpuscular Hgb Conc 33.9 g/dL (32.0-36.0); Mean Corpuscular Volume 89.8 fL (80.0-100.0); Mean Platelet Volume 10.7 fL (9.4-12.4); Platelet Count 163 K/uL (130-400); RDW Coefficient of Variation 13.1 % (11.5-14.5); RDW Standard Deviation 42.8 fL (36.4-46.3); Red Blood Count 3.05 M/uL (4.20-5.40); White Blood Count 12.03 K/ul (4.8-10.8)
--- NOTE | 2023-11-29 08:15 | Orthopedic Progress Note ---
Date of Service November 29, 2023 Assessment & Plan (1) Neurogenic claudication due to lumbar spinal stenosis: Plan: Patient is doing well postop day #2. I encouraged her to continue taking laps around the nursing station. She is going to use her spirometer. She is going to avoid any full bending at the waist. Will continue with GI DVT prophylaxis as well as pain control measures. Would like to get her discharged home tomorrow if all goes well. Admission and Anticipated Discharge Date Admission Date: November 27, 2023 Subjective Patient was seen bedside in room 307. She is doing well this morning. Her pain is well-controlled. She is tolerating p.o. well. She has incisional pain but no pain going down her legs. She has been up and walking. She denies any other numbness, tingling, paresthesias Physical Exam Physical Exam: On exam she is alert and oriented. Her lower extremity motor exam reveals no focal atrophy her strength and sensation are both intact. Her abdomen soft nontender calves are supple nontender. Cardiovascular exam reveals no gross abnormalities. The dressing is clean dry and intact. Her MICHAEL drain is in place and is holding suction. She had 15 cc of drainage on the last shift Results & Data Vital Signs (Past 12 Hours) Vital Signs Temp Pulse Resp BP Pulse Ox O2 Del Method 11/29/23 07:28 36.6 C 95 H 16 122/77 95 Room Air
[2023-11-29 08:26] LABS: BUN Creatinine Ratio 31.6 (10-20); Calcium 8.6 mg/dl (8.6-10.3); Creatinine Clr Calc Pharmacy 92.2 ml/min; Est GFR (African American) 98.1 ml/min; Est GFR (Non-African American) 84.7 ml/min; Magnesium 2.2 mg/dl (1.7-2.4)
[2023-11-29] MEDS: MULTIVITAMIN TAB PO SCH (08:29)
[2023-11-29] MEDS: amLODIPine BESYLATE 5 MG TAB PO SCH (08:29)
[2023-11-29] MEDS: FLUTICASONE PROPIONATE NA SPR 16 GM BTL SCH (08:29)
[2023-11-29] MEDS: CALCIUM 600MG + VIT D 400 IU TAB PO SCH (08:30)
[2023-11-29] MEDS: CHOLECALCIFEROL 1,000 UNITS 25 MCG TAB PO SCH (08:30)
[2023-11-29] MEDS: CHECK SCOPOLAMINE PATCH PLACEMENT SCH ×3 (08:30→23:02)
[2023-11-29] MEDS: dexAMETHasone 6 MG in SYRINGE 0 ML IV SCH (08:31)
[2023-11-29] MEDS: INSULIN ASPART PER UNIT CHARGE SC SCH ×4 (08:38→20:12)
[2023-11-29 08:45] LABS: Ferritin 167.6 ng/ml (8-388)
[2023-11-29] MEDS: guaiFENesin 600 MG TABCR PO SCH ×2 (09:07→20:09)
--- NOTE | 2023-11-29 09:10 | Hospitalist Progress Note ---
Date of Service November 29, 2023 Assessment & Plan (1) Neurogenic claudication due to lumbar spinal stenosis: Plan: s/p #1 lumbar decompression bilaterally facetectomies and foraminotomies L2-3, L3-L4 and L4-5. #2 posterior spinal fusion L3-L4 L4-5. #3 placement posterior instrumentation L3-L5. #4 interbody fusion L3-L4 L4-L5. #5 position of Spira limb by 26 mm at L3-L4 and 13 x 26 mm at L4-L5. #6 placement locally harvested morselized autograft in the posterior gutters. #7 placement of Morpheus bone graft in the interbody space and infuse collagen sponge placed combined with bone graft in the posterior lateral gutters. with Dr Hansen on 11/27. EBL 700cc Pain control, bowel regimen, PT/OT per primary service DVT Proph: SCDs, aquiles hose WBC elevation suspected from steroids/surgery. Trending down on repeat. Remains afebrile. Hgb 14 --> 10.1 --> 9.3 acute blood loss anemia from surgery/some dilutional from IVF. EBL 700cc, MICHAEL output 355cc + 75cc overnight Iron studies acceptable. B12 borderline. Pepcid daily for GI proph added Did have some lightheadedness AM 11/28 and was given AM losartan, placed on hold following. Orthostatics ok, would continue to hold losartan for today w/ elevated BUN. Cr stable. Discussed to alert of any worsened lightheaded/dizziness for need for repeat orthostatics Does have + murmur on exam (prior echo 2020 w/ mild MR noted, no change from 2018) (2) HTN (hypertension): Plan: Home meds w/ amlodipine 2.5mg, metoprolol 25mg HS, losartan 25mg daily Did have some lightheadedness reported 11/28AM w/ BP 121/70 but did have lows post-operatively. Placed on hold but was already given. Orthostatics acceptable BP 122/77, losartan on hold but pending BPs/renal function in AM likely able to resume 11/30 Monitor BP (3) Hyperlipidemia: Plan: not on statin, f/u PCP (4) Controlled type 2 diabetes mellitus without complication: Plan: a1c 6.4 --Not on any medications at baseline Added BSG AC/HS, sliding scale insulin while inpatient on steroids 11/28, BSGs much improved and stable. Monitor Outpt f/u with PCP recommended at [place] (5) Obstructive sleep apnea: Plan: not tolerant to CPAP, does have diastolic dysfunction on 2018 echo. f/u PCP for further discussions recommended Also w/ seasonal allergies -> flonase added as takes at home, also added mucinex for congestion reported. 95% on RA - continue incentive spirometer (6) Vitamin B12 deficiency (dietary) anemia: Plan: 311 this summer. Level on repeat 354 and improved. Continue OTC supplementation at dc Plan Thank you for allowing hospitalist service participate in the care of Ms Epperson. Hospitalist service will follow along in AM, possible sign off tomorrow if BPs stable/resume losartan and blood counts stable. Please call with any questions/concerns. Admission and Anticipated Discharge Date Admission Date: November 27, 2023 Supervising Physician Co-Signing Physician Notes The patient was not seen by me. The chart was reviewed. Case discussed with ADAM Lagos. Agree with assessment and plan Subjective Eval this morning, doing well. Less lightheaded/dizziness. Losartan on hold. Pain improved but did have some increased discomfort last night. Eating/drinking without issue. Passing some gas. Requested some mucinex for some phlegm. Has used zyrtec in past for allergies but notes it makes her sleepy and wanting to avoid for now. No SOB/fevers. Questions/concerns addressed at this time. Physical Exam Physical Exam: General: WD/WN obese female sitting up in bed, NAD, on computer HEENT: head atraumatic, normocephalic, thick neck, trachea midline Resp: even/unlabored,slightly diminished in the bases, no w/c/r, on room air 95% CV: regular, rates in 90s, faint +systolic murmur, no pitting edema/calf tenderness GI: +BS, soft/NT : NO FURTHER LOVE MSK/Neuro: dressing to lumbar spine slightly saturated, MICHAEL w/ bloody drainage, NVI, pulses palpable, dorsiflexion/plantar flexion intact Psych: AOx3, cooperative with exam Results & Data Results & Data Vital Signs (Past 12 Hours) Vital Signs Temp Pulse Resp BP Pulse Ox O2 Del Method 11/29/23 07:28 36.6 C 95 H 16 122/77 95 Room Air Laboratory Results 11/29/23 11/29/23 11/28/23 Range/Units 07:29 07:07 20:40 WBC 12.03 H (4.8-10.8) K/ul RBC 3.05 L (4.20-5.40) M/uL Hgb 9.3 L (12.0-16.0) g/dl Hct 27.4 L (37.0-47.0) % MCV 89.8 (80.0-100.0) fL MCH 30.5 (25.0-34.0) pg MCHC 33.9 (32.0-36.0) g/dL RDW Std Deviation 42.8 (36.4-46.3) fL RDW Coeff of [place] 13.1 (11.5-14.5) % Plt Count 163 (130-400) K/uL MPV 10.7 (9.4-12.4) fL Sodium 139 (136-145) mmol/L Potassium 4.0 (3.5-5.1) mmol/L Chloride 106 (98-107) mmol/L Carbon Dioxide 28 (21-32) mmol/L Anion Gap 5 (3-11) BUN 24 H (6-23) mg/dl Creatinine 0.76 (0.6-1.2) mg/dl Est Cr Clr Drug Dosing 92.2 ml/min Est GFR ( Amer) 98.1 ml/min Est GFR (Non-Af Amer) 84.7 ml/min BUN/Creatinine Ratio 31.6 H (10-20) Glucose 159 H (70-99(Fasting)) mg/dl POC Glucose 146 H 174 H (70-99) mg/dl Calcium 8.6 (8.6-10.3) mg/dl Magnesium 2.2 (1.7-2.4) mg/dl Iron 64 (35-150) mcg/dl TIBC 247 L (250-450) mcg/dl Unsaturated IBC 183 (155-355) mcg/dl Transferrin % Sat 26 (15-50) % Ferritin 167.6 (8-388) ng/ml Vitamin B12 354 (180-914) pg/ml 11/28/23 11/28/23 Range/Units 16:42 11:34 WBC (4.8-10.8) K/ul RBC (4.20-5.40) M/uL Hgb (12.0-16.0) g/dl Hct (37.0-47.0) % MCV (80.0-100.0) fL MCH (25.0-34.0) pg MCHC (32.0-36.0) g/dL RDW Std Deviation (36.4-46.3) fL RDW Coeff of [place] (11.5-14.5) % Plt Count (130-400) K/uL MPV (9.4-12.4) fL Sodium (136-145) mmol/L Potassium (3.5-5.1) mmol/L Chloride (98-107) mmol/L Carbon Dioxide (21-32) mmol/L Anion Gap (3-11) BUN (6-23) mg/dl Creatinine (0.6-1.2) mg/dl Est Cr Clr Drug Dosing ml/min Est GFR ( Amer) ml/min Est GFR (Non-Af Amer) ml/min BUN/Creatinine Ratio (10-20) Glucose (70-99(Fasting)) mg/dl POC Glucose 186 H 244 H (70-99) mg/dl Calcium (8.6-10.3) mg/dl Magnesium (1.7-2.4) mg/dl Iron (35-150) mcg/dl TIBC (250-450) mcg/dl Unsaturated IBC (155-355) mcg/dl Transferrin % Sat (15-50) % Ferritin (8-388) ng/ml Vitamin B12 (180-914) pg/ml PG Care Time/CCT Total # of Minutes Spent Total Time Spent with Patient: Total time spent is greater than 50% in coordination of care (as documented) at patient's floor/unit and/or counseling patient: Coding Level of Care Code 49575 SUB INP/OBS CARE 3/50MIN Diagnoses Neurogenic claudication due to lumbar spinal stenosis M48.062 HTN (hypertension) I10 Hyperlipidemia E78.5 Controlled type 2 diabetes mellitus without complication E11.9 Obstructive sleep apnea G47.33 Vitamin B12 deficiency (dietary) anemia D51.8
[2023-11-29] MEDS: FAMOTIDINE 20 MG in SYRINGE 3 ML IV SCH (11:08)
[2023-11-29] MEDS: DOCUSATE SODIUM/SENNA 50/8.6MG TAB PO SCH (20:09)
[2023-11-29] MEDS: METOPROLOL SUCC 25MG EXT REL TAB PO SCH (20:09)
[2023-11-30] MEDS: oxyCODONE HCL IR 5 MG TAB (IMMEDIATE RELEASE) PO PRN ×2 (02:06→06:11)
[2023-11-30] MEDS: POLYETHYLENE (MIRALAX) 17 GM PACK PO SCH ×2 (05:29→11:57)
--- NOTE | 2023-11-30 07:39 | Hospitalist Progress Note ---
Date of Service November 30, 2023 Assessment & Plan (1) Neurogenic claudication due to lumbar spinal stenosis: Plan: s/p #1 lumbar decompression bilaterally facetectomies and foraminotomies L2-3, L3-L4 and L4-5. #2 posterior spinal fusion L3-L4 L4-5. #3 placement posterior instrumentation L3-L5. #4 interbody fusion L3-L4 L4-L5. #5 position of Spira limb by 26 mm at L3-L4 and 13 x 26 mm at L4-L5. #6 placement locally harvested morselized autograft in the posterior gutters. #7 placement of Morpheus bone graft in the interbody space and infuse collagen sponge placed combined with bone graft in the posterior lateral gutters. with Dr Hansen on 11/27. EBL 700cc Pain control, bowel regimen, PT/OT per primary service DVT Proph: SCDs, aquiles hose WBC elevation suspected from steroids, no infectious symptoms and trending down.Afebrile Hgb 14 --> 10.1 --> 9.3 acute blood loss anemia from surgery/some dilutional from IVF. Improved to 9.9 on repeat. MICHAEL output slowed Iron studies acceptable. B12 borderline. Pepcid daily for GI proph added Patient planning for dc today if moving her bowels. No abdominal pain, passing lots of gas. Ambulation encouraged and has been frequenting the halls. (2) HTN (hypertension): Plan: Home meds w/ amlodipine 2.5mg, metoprolol 25mg HS, losartan 25mg daily Lightheadedness post-op, losartan placed on hold. Had some additional lows prior days but MUCH improved in the past 24 hours, currently 130/79 and ASYMPTOMATIC Discussed checking BP at home in AM and if stable/no symptoms can resume her losartan (3) Hyperlipidemia: Plan: not on statin, f/u PCP (4) Controlled type 2 diabetes mellitus without complication: Plan: a1c 6.4 --Not on any medications at baseline Added BSG AC/HS, sliding scale insulin while inpatient on steroids 11/28, BSGs much improved and stable. Monitor Outpt f/u with PCP recommended at [place] (5) Obstructive sleep apnea: Plan: not tolerant to CPAP, does have diastolic dysfunction on 2018 echo. f/u PCP for further discussions recommended Also w/ seasonal allergies -> flonase added as takes at home, also added mucinex for congestion reported. - continue incentive spirometer IMPROVEMENT w/ such, 98% on RA (6) Vitamin B12 deficiency (dietary) anemia: Plan: 311 this summer. Level on repeat 354 and improved. Continue OTC supplementation at dc Plan Thank you for allowing hospitalist service participate in the care of Ms Epperson. Hospitalist service will sign off at this time. Please call with any questions/concerns. Admission and Anticipated Discharge Date Admission Date: November 27, 2023 Supervising Physician Co-Signing Physician Notes The patient was not seen by me. The chart was reviewed. Case discussed with ADAM Lagos. Agree with assessment and plan Subjective Eval this morning, doing well. Pain controlled with medications and improving. Urinating/eating without issue, passing lots of gas and working on bowel regimen. THinks may be more comfortable at home going and has 2 bottles of miralax and again passing lots of gas but would like to have her have BM prior to dc per nursing per ortho. No fever/chills, chest pain/shortness of breath/abdominal pain. She reports having BP cuff at home. BP improved and stable 130/79 and discussed checking at home and if stable can resume in AM./ Questions/concerns addressed at this time. She is hopeful for dc this afternoon. Physical Exam Physical Exam: General: WD/WN obese female walking back from bathroom, just finished getting washed up/dressed, NAD, at bedside HEENT: head atraumatic, normocephalic, thick neck, trachea midline Resp: even/unlabored, CTA, no w/c/r, 98% on RA CV: regular, rates in 90s, faint +faint systolic murmur, no pitting edema/calf tenderness GI: +BS throughout, slight distension but soft/nontender : NO LOVE MSK/Neuro: dressing to lumbar spine slightly saturated with serous drainage, MICHAEL w/ scant serosanguineous drainage, NVI , plantar/dorsiflexion intact, pulses palpable, no calf edema/tenderness Psych: AOx3, cooperative with exam Results & Data Results & Data Vital Signs (Past 12 Hours) Vital Signs Temp Pulse Resp BP Pulse Ox O2 Del Method 11/30/23 07:16 36.6 C 71 16 130/79 98 Room Air 11/29/23 21:52 Room Air 11/29/23 20:15 37.0 C 75 16 114/75 95 Room Air PG Care Time/CCT Total # of Minutes Spent Total Time Spent with Patient: Total time spent is greater than 50% in coordination of care (as documented) at patient's floor/unit and/or counseling patient: Coding Level of Care Code 17790 SUB INP/OBS CARE 2/35MIN Diagnoses Neurogenic claudication due to lumbar spinal stenosis M48.062 HTN (hypertension) I10 Hyperlipidemia E78.5 Controlled type 2 diabetes mellitus without complication E11.9 Obstructive sleep apnea G47.33 Vitamin B12 deficiency (dietary) anemia D51.8
--- NOTE | 2023-11-30 07:54 | Discharge Summary ---
Date of Service November 30, 2023 Admission HPI Per Admitting Provider This is a 63-year-old female presents with chronic persistent back and leg pain after failing course of nonoperative care she is here for surgical invention. Discharge Data Consultations 11/27/23 12:34 Consult Hospitalist Routine Procedures Performed Operation Date: 11/27/23 07:45 Actual Procedures p L3-L5 Decompression and Fusion, Spinal Cord Monitoring(Not Applicable) - Jeremy Hansen, Hospital Course (1) Neurogenic claudication due to lumbar spinal stenosis: Patient is a pleasant 63-year-old female with history physical examination and radiographic images consistent with the above-mentioned diagnosis. For this reason she was brought to the operating room on 11/27/2023 and undergone a lumbar decompression and fusion. This was performed by Dr. Hansen under general anesthesia. She did well during the procedure and left the operating room with a MICHAEL drain Wolff in place and was transferred to PACU in stable condition. She was then transferred to the orthopedic floor. She was placed on GI and DVT prophylaxis and medications utilized for pain control. She was seen by physical therapy postoperative day #1 for ambulation and gait training. Throughout her hospital course her abdomen remained supple nontender calves remained supple and nontender. On postoperative day #3 she was deemed safe for home discharge. Her discharge instructions were to avoid any full bending at the waist or stopped anything heavier than 5 to 7 pounds. Her dressing is to be changed once daily till there is no drainage once there is no drainage she may begin showering. She was seen in the office approximately 2 weeks out from her surgery or sooner if she develops any increased pain drainage from the incision fevers or chills.
[2023-11-30] MEDS: guaiFENesin 600 MG TABCR PO SCH (07:59)
[2023-11-30] MEDS: FLUTICASONE PROPIONATE NA SPR 16 GM BTL SCH (07:59)
[2023-11-30] MEDS: amLODIPine BESYLATE 5 MG TAB PO SCH (07:59)
[2023-11-30] MEDS: CALCIUM 600MG + VIT D 400 IU TAB PO SCH (08:00)
[2023-11-30] MEDS: CHOLECALCIFEROL 1,000 UNITS 25 MCG TAB PO SCH (08:00)
[2023-11-30] MEDS: MULTIVITAMIN TAB PO SCH (08:00)
[2023-11-30 08:01] LABS: Hematocrit (blood only) 29.4 % (37.0-47.0); Hemoglobin 9.9 g/dl (12.0-16.0); Mean Corpuscular Hemoglobin 30.4 pg (25.0-34.0); Mean Corpuscular Hgb Conc 33.7 g/dL (32.0-36.0); Mean Corpuscular Volume 90.2 fL (80.0-100.0); Mean Platelet Volume 10.4 fL (9.4-12.4); Platelet Count 185 K/uL (130-400); RDW Coefficient of Variation 12.8 % (11.5-14.5); Red Blood Count 3.26 M/uL (4.20-5.40); White Blood Count 10.88 K/ul (4.8-10.8)
[2023-11-30] MEDS: dexAMETHasone 6 MG in SYRINGE 0 ML IV SCH (08:01)
[2023-11-30] MEDS: INSULIN ASPART PER UNIT CHARGE SC SCH ×2 (08:03→11:56)
[2023-11-30] MEDS: FAMOTIDINE 20 MG in SYRINGE 3 ML IV SCH (08:11)
[2023-11-30 08:17] LABS: BUN Creatinine Ratio 29.1 (10-20); Calcium 8.8 mg/dl (8.6-10.3); Creatinine Clr Calc Pharmacy 88.7 ml/min; Est GFR (African American) 93.6 ml/min; Est GFR (Non-African American) 80.8 ml/min; Potassium 4.1 mmol/L (3.5-5.1)
--- NOTE | 2023-12-03 09:16 | Coding Query ---
CODING QUERY To promote full compliance with coding requirements relating to patient care, provider participation is requested in all cases of adjunct teacher uncertainty. Please assist us with the question(s) below: Coding Question(s): The 11/27 Operative Report documents, under Actual Procedures, " #4 interbody fusion L3-L4 L4-L5", and the Description of Procedure documents, "By way of a transforaminal approach on the right complete discectomy of L4-5 was performed endplates guided to subcortically bone and a 13 x 26 mm Spira cage with Morpheus tapped in position. Then proceeded to L4-L5 on the right and by way of a transforaminal portion right a complete discectomy of L4-5 was performed endplates guided to subcortically bone and a 11 x 26 mm Spira cage with I factor tapped in position". Please specify below, to clarify regarding the Complete Discectomy and Interbody Fusion with Spira Cage procedure(s): ( x) Complete Discectomy and Interbody Fusion with Spira cage was done at the L3-L4 level as well as the L4-L5 level ( ) Complete Discectomy and Interbody Fusion with Spira cage was done at the L4-L5 level only ( ) Other: Please Specify Physician's Response(s): Thank you Miryam Diaz Principal Diagnosis: "that condition established after study, to be chiefly responsible for occasioning the admission of the patient to the hospital for care." Co-Existing Principal Diagnosis: "when two or more diagnoses equally meet the criteria for principal diagnosis as determined by the circumstances of admission, diagnostic work up, and/or therapy provided, and the Alphabetic Index, Tabular List, or another coding guideline does not provide sequencing direction, any one of the diagnoses may be sequenced first." "When the physician has documented what appears to be a current diagnosis in the body of the record, but has not included the diagnosis in the final diagnostic statement, the physician should be asked whether the diagnosis should be added." (Source [facility]oding [facility] 2 QTR90. p3-4) [facility]
== END 2023-11-30 12:46 | disposition home or self-care (01) | DRG 454 ==
LOC: ASU 06:08 → 3E 10:39